=== PATIENT | female | born 1965 | race Two or more races ===

== ENCOUNTER 2025-02-02 23:27 | Inpatient (IN) | payer MEDICARE, MEDICAID ==
[~2025-02-02] VITALS: Ht 157.5 cm; Wt 80.7 kg
[2025-02-03] MEDS: IV NS 0.9% 500 ML BAG IV ONE (00:48)
[2025-02-03 00:53] LABS: PLATELET COUNT (AUTO) 267 K/uL (150-450); RED BLOOD CELL COUNT(AUTO) 3.91 MIL/uL (4.0-5.2); RED CELL DISTRIBUTION WIDTH 15.3 % (11.5-15.0); WHITE BLOOD COUNT (AUTO) 8.2 K/uL (4.3-11.0)
[2025-02-03 01:00] LABS: CALCIUM, SERUM 8.2 mg/dL (8.5-10.1); SODIUM SERUM 136 mmol/L (136-145); UREA NITROGEN, BLOOD 58 mg/dL (7-18)
[2025-02-03 01:01] LABS: CREATININE 9.5 mg/dL (0.6-1.3)
[2025-02-03 01:06] LABS: ASPARTATE AMINOTRANSFERASE 18 U/L (15-37); TOTAL PROTEIN, SERUM 8.8 g/dL (6.4-8.2)
[2025-02-03 01:12] LABS: INR 1.01 (0.91-1.10)
[2025-02-03] MEDS ORDERED: ONDANSETRON HCL/PF 4 MG/2 ML VIAL IVP PRN (02:00)
[2025-02-03] MEDS ORDERED: DEXTROSE 50%-WATER 50 ML DISP.SYRIN IV PRN (02:00)
[2025-02-03] MEDS ORDERED: MAGNESIUM HYDROXIDE 30 ML UDC PO PRN (02:00)
[2025-02-03] MEDS: MIDODRINE HCL (5MG) 5 MG TABLET PO ONE (05:52)
[2025-02-03 08:00] VITALS: BP 106/66; TEMP 98; O2SAT 100
[2025-02-03] MEDS ORDERED: INSU100V39 SQ (08:56)
[2025-02-03] MEDS ORDERED: SENN-261 PO (08:56)
[2025-02-03] MEDS ORDERED: ASPI-1420 PO (08:56)
[2025-02-03] MEDS ORDERED: AMLO-212 PO (08:56)
[2025-02-03] MEDS ORDERED: OMEP20CA15 PO (08:56)
[2025-02-03] MEDS ORDERED: BISA-79 PO (08:56)
[2025-02-03] MEDS ORDERED: DICL100G34 TP (08:56)
[2025-02-03] MEDS ORDERED: SEVE800T28 PO (08:56)
[2025-02-03] MEDS ORDERED: ONDA-97 PO (08:56)
[2025-02-03] MEDS ORDERED: OLOP2.5D12 EACHEYE (08:56)
[2025-02-03] MEDS ORDERED: ATOR80TA PO (08:56)
[2025-02-03] MEDS ORDERED: MIRT-121 PO (08:56)
[2025-02-03] MEDS ORDERED: ACET325T53 PO (08:56)
[2025-02-03] MEDS ORDERED: FOLI0.8T23 PO (08:56)
[2025-02-03] MEDS ORDERED: POLY17PO4 PO (08:56)
[2025-02-03] MEDS ORDERED: CYCL30DR EACHEYE (08:56)
[2025-02-03] MEDS ORDERED: INSU100I30 SQ (08:56)
[2025-02-03] MEDS ORDERED: LEVO88TA5 PO (08:56)
[2025-02-03] MEDS ORDERED: MAGN400T30 PO (08:56)
[2025-02-03 09:23] LABS: PLATELET COUNT (AUTO) 241 K/uL (150-450); RED BLOOD CELL COUNT(AUTO) 3.78 MIL/uL (4.0-5.2); RED CELL DISTRIBUTION WIDTH 14.8 % (11.5-15.0); WHITE BLOOD COUNT (AUTO) 6.0 K/uL (4.3-11.0)
[2025-02-03] MEDS: BLOOD SUGAR DIAGNOSTIC 1 EACH STRIP IN SCH (09:46)
[2025-02-03] MEDS: PANTOPRAZOLE 40 MG TABLET.DR PO SCH (09:46)
[2025-02-03] MEDS: HEPARIN SODIUM, PORCINE 5000 UNITS/1 ML VIAL SQ SCH (09:47)
[2025-02-03] MEDS: INSULIN REGULAR, HUMAN 100 UNIT/ML 3 ML VIAL SQ PRN (09:48)
[2025-02-03 10:27] VITALS: BP 106/66; TEMP 98; O2SAT 100
[2025-02-03 10:38] LABS: CALCIUM, SERUM 8.0 mg/dL (8.5-10.1); PHOSPHORUS 5.5 mg/dL (2.5-4.9); SODIUM SERUM 137.0 mmol/L (136-145); UREA NITROGEN, BLOOD 60.0 mg/dL (7-18)
[2025-02-03 10:41] LABS: CREATININE 10.0 mg/dL (0.6-1.3)
[2025-02-03 12:22] VITALS: BP 106/60; TEMP 98.3; O2SAT 98
[2025-02-03] MEDS: MIDODRINE HCL (5MG) 5 MG TABLET PO SCH (13:00)
[2025-02-03] MEDS: ACETAMINOPHEN 325 MG TABLET PO PRN (13:09)
[2025-02-03] MEDS: HYDROCODONE/APAP 5/325MG TABLET PO PRN (15:04)
[2025-02-03 16:00] VITALS: BP 115/71; TEMP 97.7; O2SAT 100
[2025-02-03 20:00] VITALS: BP 110/52; TEMP 97.7; O2SAT 100
[2025-02-04] VITALS: BP 124/68; TEMP 98.1; O2SAT 95
[2025-02-04 04:00] VITALS: BP 129/65; TEMP 98.4; O2SAT 95
[2025-02-04 08:00] VITALS: BP 130/85; TEMP 97.9; O2SAT 95
[2025-02-04 10:18] LABS: PLATELET COUNT (AUTO) 248 K/uL (150-450); RED BLOOD CELL COUNT(AUTO) 3.77 MIL/uL (4.0-5.2); RED CELL DISTRIBUTION WIDTH 15.7 % (11.5-15.0); WHITE BLOOD COUNT (AUTO) 6.3 K/uL (4.3-11.0)
[2025-02-04 10:33] LABS: ASPARTATE AMINOTRANSFERASE 26.0 U/L (15-37); CALCIUM, SERUM 8.2 mg/dL (8.5-10.1); CREATININE 6.5 mg/dL (0.6-1.3); PHOSPHORUS 3.9 mg/dL (2.5-4.9); SODIUM SERUM 131.0 mmol/L (136-145); TOTAL PROTEIN, SERUM 8.0 g/dL (6.4-8.2); UREA NITROGEN, BLOOD 29.0 mg/dL (7-18)
[2025-02-04 12:00] VITALS: BP 125/74; TEMP 98.6; O2SAT 95
[2025-02-04 16:00] VITALS: BP 127/66; TEMP 98.6; O2SAT 95
[2025-02-04 20:16] VITALS: BP 107/66; TEMP 98.1; O2SAT 100
[2025-02-05 00:36] VITALS: BP 136/71; TEMP 98.2; O2SAT 96
[2025-02-05 04:08] VITALS: BP 139/75; TEMP 97.9; O2SAT 96
[2025-02-05] MEDS: MAG HYDROX/AL HYDROX/SIMETH 30 ML UDC PO PRN (06:30)
[2025-02-05 08:00] VITALS: BP 96/53; TEMP 98.5; O2SAT 97
[2025-02-05 12:00] VITALS: BP 113/63; TEMP 98; O2SAT 98
[2025-02-05 16:00] VITALS: BP 110/64; TEMP 98.3; O2SAT 92
[2025-02-05 20:00] VITALS: BP 154/83; TEMP 97.9; O2SAT 92
[2025-02-06] VITALS: BP 116/67; TEMP 97.7; O2SAT 96
[2025-02-06 04:00] VITALS: BP 153/84; TEMP 98; O2SAT 96
[2025-02-06 07:46] LABS: PLATELET COUNT (AUTO) 275 K/uL (150-450); RED BLOOD CELL COUNT(AUTO) 3.56 MIL/uL (4.0-5.2); RED CELL DISTRIBUTION WIDTH 15.0 % (11.5-15.0); WHITE BLOOD COUNT (AUTO) 6.9 K/uL (4.3-11.0)
[2025-02-06 08:00] VITALS: BP 140/75; TEMP 97.3; O2SAT 100
[2025-02-06 08:04] LABS: ASPARTATE AMINOTRANSFERASE 10.0 U/L (15-37); CALCIUM, SERUM 8.3 mg/dL (8.5-10.1); PHOSPHORUS 4.8 mg/dL (2.5-4.9); SODIUM SERUM 130.0 mmol/L (136-145); TOTAL PROTEIN, SERUM 7.5 g/dL (6.4-8.2); UREA NITROGEN, BLOOD 51.0 mg/dL (7-18)
[2025-02-06 08:14] LABS: CREATININE 10.2 mg/dL (0.6-1.3)
[2025-02-06 12:00] VITALS: BP 101/44; TEMP 98.3; O2SAT 100
[2025-02-06 13:26] VITALS: BP 101/44; TEMP 98.3; O2SAT 100
== END 2025-02-06 16:20 | DRG 640 ==
LOC: ER 02-03 00:14 → TELE1 02-03 04:18
PROC: 5A1D70Z Performance of Urinary Filtration, Intermittent, Less than 6 Hours Per Day (ICD-10-PCS; principal; 2025-02-03)
DX: E87.70 Fluid overload, unspecified (principal); N18.6 End stage renal disease; I13.2 Hypertensive heart and chronic kidney disease with heart failure and with stage 5 chronic kidney disease, or end stage renal disease; E11.22 Type 2 diabetes mellitus with diabetic chronic kidney disease; E03.9 Hypothyroidism, unspecified; D64.9 Anemia, unspecified; Z99.2 Dependence on renal dialysis; I50.9 Heart failure, unspecified; I25.10 Atherosclerotic heart disease of native coronary artery without angina pectoris; E78.5 Hyperlipidemia, unspecified; Z95.5 Presence of coronary angioplasty implant and graft; Z79.890 Hormone replacement therapy; Z79.4 Long term (current) use of insulin; Z79.899 Other long term (current) drug therapy; Z79.82 Long term (current) use of aspirin; M89.8X9 Other specified disorders of bone, unspecified site
CPT/HCPCS: 36415; 70450-TC; 71045-TC; 80048-TC; 80053-TC; 80076-TC; 82962-TC; 83735-TC; 83880; 84100-TC; 84484-TC; 85025-TC; 85730-TC; 93307-TC; G0378; J1644; J1815; J7030; J7040

== ENCOUNTER 2025-03-18 09:44 | Inpatient (IN) | payer MEDICARE, OTHER ==
[~2025-03-18] VITALS: Ht 157.5 cm; Wt 81.2 kg
[~2025-03-18 09:44] MED LIST: ACET325T53 PO; AMLO-212 PO; ASPI-1420 PO; ATOR80TA PO; BISA-79 PO; CYCL30DR EACHEYE; DICL100G34 TP; FOLI0.8T23 PO; INSU100I30 SQ; INSU100V39 SQ; LEVO88TA5 PO; MAGN400T30 PO; MIRT-121 PO; OLOP2.5D12 EACHEYE; OMEP20CA15 PO; ONDA-97 PO; POLY17PO4 PO; SENN-261 PO; SEVE800T28 PO
[2025-03-18 10:28] LABS: PLATELET COUNT (AUTO) 244 K/uL (150-450); RED BLOOD CELL COUNT(AUTO) 3.04 MIL/uL (4.0-5.2); RED CELL DISTRIBUTION WIDTH 15.2 % (11.5-15.0); WHITE BLOOD COUNT (AUTO) 6.7 K/uL (4.3-11.0)
[2025-03-18 10:36] LABS: CALCIUM, SERUM 7.8 mg/dL (8.5-10.1); SODIUM SERUM 140.0 mmol/L (136-145); UREA NITROGEN, BLOOD 72.0 mg/dL (7-18)
[2025-03-18 10:42] LABS: CREATININE 11.3 mg/dL (0.6-1.3)
[2025-03-18] MEDS ORDERED: FUROSEMIDE 20 MG/2 ML VIAL ONE (11:06)
[2025-03-18] MEDS ORDERED: SODIUM BICARBONATE 5 MEQ/10 ML DISP.SYRIN IV ONE (11:06)
[2025-03-18] MEDS ORDERED: SAXA5TAB PO (11:11)
[2025-03-18] MEDS ORDERED: BISA10SU11 RC (11:11)
[2025-03-18] MEDS ORDERED: TRAZ-182 PO (11:11)
[2025-03-18] MEDS ORDERED: VITA1TAB37 PO (11:11)
[2025-03-18] MEDS ORDERED: CHOL100062 PO (11:11)
[2025-03-18] MEDS ORDERED: KETO10DR3 OP (11:11)
[2025-03-18] MEDS ORDERED: CARB-231 EACHEYE (11:11)
[2025-03-18] MEDS ORDERED: CYCL10TA9 PO (11:11)
[2025-03-18] MEDS ORDERED: NA P133E RC (11:11)
[2025-03-18] MEDS ORDERED: SODI15OR5 PO (11:11)
[2025-03-18] MEDS ORDERED: LIDO1ADH82 TP (11:11)
[2025-03-18] MEDS ORDERED: [UNRECOGNIZED DRUG - OTHER] PO (11:11)
[2025-03-18 11:15] VITALS: O2SAT 95
[2025-03-18 11:30] VITALS: O2SAT 97
[2025-03-18] MEDS: FUROSEMIDE 40 MG/4 ML VIAL IV ONE (11:31)
[2025-03-18] MEDS: DEXTROSE 50%-WATER 50 ML DISP.SYRIN IV ONE (11:33)
[2025-03-18] MEDS: INSULIN REGULAR, HUMAN 100 UNIT/ML 10 ML VIAL SQ ONE (11:34)
[2025-03-18] MEDS: SODIUM BICARBONATE SYR 50 MEQ/50 ML DISP.SYRIN IV ONE (11:35)
[2025-03-18] MEDS: CALCIUM CHLORIDE 1,000 MG/10 ML DISP.SYRIN IV ONE (11:37)
[2025-03-18] MEDS: ALBUTEROL FS 2.5 MG/3 ML VIAL.NEB NEB ONE (11:53)
[2025-03-18] MEDS ORDERED: DICLOFENAC TOPICAL 100 GM TUBE TP PRN (12:30)
[2025-03-18] MEDS ORDERED: POLYETHYLENE GLYCOL 3350 17 GM POWD.PACK PO PRN (12:30)
[2025-03-18] MEDS ORDERED: ACETAMINOPHEN 325 MG TABLET PO PRN (12:30)
[2025-03-18] MEDS ORDERED: Z GUARD REMEDY 4 OZ OINT TP PRN (12:30)
[2025-03-18] MEDS ORDERED: DEXTROSE 50%-WATER 50 ML DISP.SYRIN IV PRN (12:30)
[2025-03-18] MEDS ORDERED: ONDANSETRON HCL/PF 4 MG/2 ML VIAL IVP PRN (12:30)
[2025-03-18] MEDS ORDERED: MAG HYDROX/AL HYDROX/SIMETH 30 ML UDC PO PRN (12:30)
[2025-03-18] MEDS ORDERED: MAGNESIUM HYDROXIDE 30 ML UDC PO PRN (12:30)
[2025-03-18] MEDS ORDERED: BISACODYL SUPP (10 MG) 10 MG/SUPP.RECT SUPP.RECT RC PRN (12:30)
[2025-03-18] MEDS: SODIUM POLYSTYRENE SULFONATE 15 G/60 ML BOTTLE PO SCH (12:58)
[2025-03-18] MEDS ORDERED: SODIUM POLYSTYRENE SULFONATE 15 G/60 ML BOTTLE ONE (12:58)
[2025-03-18] MEDS: ARTIFICIAL TEARS 15 ML BOTTLE EACHEYE SCH (13:00)
[2025-03-18 14:00] VITALS: BP 111/75; TEMP 97.6; O2SAT 98
[2025-03-18] MEDS ORDERED: Medication Not On Formulary EA (Ketotifen Fumarate (Alaway) 1 DROP) OP SCH (17:00)
[2025-03-18] MEDS ORDERED: [UNRECOGNIZED DRUG - OTHER] PO SCH (18:00)
[2025-03-18] MEDS: CYCLOBENZAPRINE 10 MG TABLET PO SCH (18:29)
[2025-03-18] MEDS: BLOOD SUGAR DIAGNOSTIC 1 EACH STRIP VI SCH (18:29)
[2025-03-18 18:34] LABS: CALCIUM, SERUM 8.6 mg/dL (8.5-10.1); CREATININE 6.3 mg/dL (0.6-1.3); SODIUM SERUM 143.0 mmol/L (136-145); UREA NITROGEN, BLOOD 39.0 mg/dL (7-18)
[2025-03-18 20:00] VITALS: BP 120/74; TEMP 97.3; O2SAT 100
[2025-03-18] MEDS: ATORVASTATIN 40 MG TABLET PO SCH (21:33)
[2025-03-18] MEDS: SENNOSIDES 8.6 MG TABLET PO SCH (21:33)
[2025-03-18] MEDS: TRAZODONE 50 MG TABLET PO SCH (21:33)
[2025-03-18] MEDS: *INSULIN REGULAR(HUMULIN R)HUM 100 UNIT/ML VIAL SQ PRN (21:44)
[2025-03-19] VITALS (7 sets, daily range): BP systolic 124–133; BP diastolic 8–73; TEMP 97.5–99.1; O2SAT 94–100
[2025-03-19] MEDS: INSULIN REGULAR, HUMAN 100 UNIT/ML 3 ML VIAL SQ PRN (06:32)
[2025-03-19] MEDS: PANTOPRAZOLE 40 MG TABLET.DR PO SCH (07:44)
[2025-03-19] MEDS: LEVOTHYROXINE SODIUM 88 MCG TABLET PO SCH (07:44)
[2025-03-19] MEDS: CHOLECALCIFEROL 1,000 UNIT TABLET (VIT D3) PO SCH (09:39)
[2025-03-19] MEDS: ASPIRIN EC 81 MG TABLET.DR PO SCH (09:39)
[2025-03-19] MEDS: LIDOCAINE 5% (PATCH) 1 EA PATCH TP SCH (09:39)
[2025-03-19] MEDS: OLOPATADINE HCL 0.1% OPHTH BOTTLE EACHEYE SCH (09:39)
[2025-03-19] MEDS: AMLODIPINE BESYLATE 5 MG TABLET PO SCH (09:40)
[2025-03-19 13:24] LABS: CALCIUM, SERUM 8.5 mg/dL (8.5-10.1); PHOSPHORUS 4.8 mg/dL (2.5-4.9); SODIUM SERUM 135.0 mmol/L (136-145)
[2025-03-19 13:32] LABS: UREA NITROGEN, BLOOD 38.0 mg/dL (7-18)
[2025-03-19 13:33] LABS: PLATELET COUNT (AUTO) 262 K/uL (150-450); RED BLOOD CELL COUNT(AUTO) 3.40 MIL/uL (4.0-5.2); RED CELL DISTRIBUTION WIDTH 15.6 % (11.5-15.0); WHITE BLOOD COUNT (AUTO) 5.8 K/uL (4.3-11.0)
[2025-03-19 13:37] LABS: CREATININE 8.3 mg/dL (0.6-1.3)
[2025-03-19] MEDS: ACETAMINOPHEN 325 MG TABLET PO PRN (21:05)
[2025-03-19] MEDS: BENZONATATE 100 MG CAPSULE PO PRN (21:05)
[2025-03-20 00:08] VITALS: BP 122/61; TEMP 98.1; O2SAT 96
[2025-03-20 04:10] VITALS: BP 131/67; TEMP 97.9; O2SAT 96
[2025-03-20 07:21] LABS: PLATELET COUNT (AUTO) 258 K/uL (150-450); RED BLOOD CELL COUNT(AUTO) 3.13 MIL/uL (4.0-5.2); RED CELL DISTRIBUTION WIDTH 15.1 % (11.5-15.0); WHITE BLOOD COUNT (AUTO) 6.2 K/uL (4.3-11.0)
[2025-03-20] MEDS: SEVELAMER CARBONATE 800 MG POWD.PACK GT SCH (07:41)
[2025-03-20 08:00] VITALS: BP 135/61; TEMP 98; O2SAT 98
[2025-03-20 12:00] VITALS: BP 134/60; TEMP 98.2; O2SAT 98
[2025-03-20 12:51] LABS: CALCIUM, SERUM 8.2 mg/dL (8.5-10.1); CREATININE 9.8 mg/dL (0.6-1.3); PHOSPHORUS 5.2 mg/dL (2.5-4.9); SODIUM SERUM 137.0 mmol/L (136-145); UREA NITROGEN, BLOOD 51.0 mg/dL (7-18)
[2025-03-20 16:00] VITALS: BP 134/80; TEMP 97.5; O2SAT 98
== END 2025-03-20 18:45 | DRG 640 ==
LOC: ER 09:49 → TELE 12:19
PROC: 5A1D70Z Performance of Urinary Filtration, Intermittent, Less than 6 Hours Per Day (ICD-10-PCS; principal; 2025-03-18)
DX: E87.5 Hyperkalemia (principal); G92.8 Other toxic encephalopathy; N18.6 End stage renal disease; I13.2 Hypertensive heart and chronic kidney disease with heart failure and with stage 5 chronic kidney disease, or end stage renal disease; D64.9 Anemia, unspecified; E03.9 Hypothyroidism, unspecified; E11.22 Type 2 diabetes mellitus with diabetic chronic kidney disease; E66.9 Obesity, unspecified; Z99.2 Dependence on renal dialysis; I50.32 Chronic diastolic (congestive) heart failure; Z68.32 Body mass index [BMI] 32.0-32.9, adult; E78.5 Hyperlipidemia, unspecified; I25.10 Atherosclerotic heart disease of native coronary artery without angina pectoris; R09.02 Hypoxemia; Z98.61 Coronary angioplasty status
CPT/HCPCS: 36415; 70450-TC; 71045-TC; 80048-TC; 82962-TC; 83735-TC; 84100-TC; 85025-TC; 90935-TC; G0378; J1815; J1938; J3490